=== PATIENT | male | born 1945 | race Caucasian/White ===

== ENCOUNTER → 2018-09-27 08:19 | Outpatient (CLI) | payer MEDICARE, OTHER | END | disposition home or self-care (01) | LOC: D.HCCARDIO 08:19 | PROVIDERS: ATTEND Internal Medicine Cardiovascular Disease | DX: I25.10 Atherosclerotic heart disease of native coronary artery without angina pectoris (principal) ==

== ENCOUNTER 2018-10-10 06:12 | Outpatient (CLI) | payer MEDICARE, OTHER ==
[~2018-10-10] VITALS: Ht 182.9 cm; Wt 108.6 kg
--- NOTE | ~2018-10-10 | HEMODYNAMI ---
PATIENT:PHILIPPE ABREU MEDICAL RECORD: [id number] : 47 LOCATION:[facility] ADMISSION DATE: 10/10/18 Generatedon:10/10/20188:36 Patient name: PHILIPPE ABREU Patient #: [id number] SSN: : 1945 Date of study: 10/10/2018 Page: Of Hemodynamic Procedure Report Patient Data Patient Demographics Procedure consent was obtained First Name: PHILIPPE Gender: Male Last Name: BRADY : 1945 Patient #: [id number] Age: 73 year(s) Race: Unknown Additional ID: [id number] Contact details Address: [address] [place] [address] State: [place] City: [facility] Zip code: [address] Admission Admission Data Admission Date: 10/10/2018 Admission Time: 6:12 Admit Source: Other Height (in.): 71.65 BSA: 1.84 (m2) Height (cm.): 182 BMI: 19.62 (kg/m2) Weight (lbs.): 143.3 Weight (kg.): 65 Lab Results Lab Result Date: 10/10/2018 Lab Result Time: 0:00 Biochemistry Name Units Result Min Max BUN mg/dl 14 --(--*-)-- 7 18 Creatinine mg/dl 1.2 --(---*)-- 0.6 1.3 CBC Name Units Result Min Max Hemoglobin g/dl 15.1 --(-*--)-- 13.5 17.5 Procedure Procedure Types Cath Procedure Diagnostic Procedure LHC LHC w/Coronaries Procedure Description Procedure Date Procedure Date: 10/10/2018 Procedure Start Time: 8:15 Procedure End Time: 8:35 Procedure Staff Name Function Pollo Gutiérrez MD Performing Physician Sandra Richmond RT Scrub Yordy Longo RN Nurse Jaron Delarosa RT Monitor Procedure Data Cath Procedure Fluoroscopy Diagnostic fluoroscopy Total fluoroscopy Time: 5.9 time: 5.9 min min Diagnostic fluoroscopy Total fluoroscopy dose: dose: 1282 mGy 1282 mGy Contrast Material Contrast Material Type Amount (ml) Isovue 300 76 Entry Location Entry Primary Successful Side Size Upsize Upsize Entry Closure Perez ccessful Closure Location (Fr) 1 (Fr) 2 (Fr) Remarks Device Remarks Radial Right 6 Fr Mechanical artery Short Compression Estimated blood loss: 10 ml Diagnostic catheters Device Type Used For End Catheter Placement DIAGNOSTIC Khari 110cm Procedure 5Fr catheter ([id number]) DIAGNOSTIC [place] 110cm 5 Procedure Fr catheter ([id number]) Procedure Medications Medication Administration Route Dosage Oxygen 8 l/min Lidocaine 2% added to field 20 Heparin Flush Bag added to field 2 bags (1000units/500ml NS) 0.9% NaCl I.V. 100 ml/hr Radial Cocktail I.A. 1 syringe (Verapamil 2mg/Nitro 400mcg/Heparin 1500units) Versed I.V. 1 mg Fentanyl I.V. 50 mcg Versed I.V. 1 mg Fentanyl I.V. 50 mcg Versed I.V. 1 mg Versed I.V. 1 mg Hemodynamics Rest BSA: 1.84 (m2) HGB: 15.1 (g/dl) O2 Consumption: Estimated: 215.67 (ml/min) O2 Co nsumption indexed: Estimated:117.21 (ml/min/m) Heart Rate: 75 (bpm) Pressure Samples Time Site Value (mmHg) Purpose Heart Use Rate(bpm) 8:17 LV 164/-18,11 Snapshot 76 8:27 LV 150/-15,7 Snapshot 82 8:29 AO 113/64(73) Snapshot 80 Gradients Valve Time Site Site Mean SEP/DFP Peak To Heart Use 1 2 (mmHg) (sec/min) Peak Rate (mmHg) (bpm) Aortic 8:18 LV AO 66 Snapshots Pre Cath Intra NCS Post Cath Vital Signs Time Heart Resp SPO2 etCO2 NIBP (mmHg) Rhythm Pain Sedation Rate (ipm) (%) (mmHg) Status Level (bpm) 8:05:52 76 14 100 0 142/93(113) NSR 0 (11) 10(A) , No pain 8:10:04 77 13 98 0 152/98(120) NSR 0 (11) 10(A) , No pain 8:14:16 80 13 96 0 151/101(118) NSR 0 (11) 10(A) , No pain 8:18:30 90 13 95 0 122/69(81) NSR 0 (11) 9(A) , No pain 8:23:25 81 15 96 0 143/95(119) NSR 0 (11) 9(A) , No pain 8:27:43 82 15 99 0 144/76(111) NSR 0 (11) 9(A) , No pain 8:32:01 79 15 97 0 133/80(99) NSR 0 (11) 10(A) , No pain Medications Time Medication Route Dose Verified Delivered Reason Notes E ffectiveness by by 8:07:30 Oxygen simple 8 l/min Pollo Buffie used for mask Brock Longo RN procedure 8:07:46 Lidocaine 2% added 20ml Pollo Pollo for local to vial Brock Gutiérrez MD anesthetic field 8:07:51 Heparin Flush added 2 bags Pollo Pollo used for Bag to Brock Gutiérrez MD procedure (1000units/500ml field NS) 8:08:00 0.9% NaCl I.V. 100 Pollo Buffie Per ml/hr Brock Longo RN physician 8:12:11 Versed I.V. 1 mg Pollo Buffie for sedation Brock Longo RN 8:12:18 Fentanyl I.V. 50 mcg Pollo Buffie for sedation Brock Longo RN 8:16:04 Radial Cocktail I.A. 1 Pollo Pollo for (Verapamil syringe Brock Gutiérrez MD vasodilation 2mg/Nitro 400mcg/Heparin 1500units) 8:16:45 Versed I.V. 1 mg Pollo Buffie for sedation Brock Longo RN 8:16:48 Fentanyl I.V. 50 mcg Pollo Buffie for sedation Brock Longo RN 8:21:24 Versed I.V. 1 mg Pollo Buffie for sedation Brock Longo RN 8:26:56 Versed I.V. 1 mg Pollo Buffie for sedation Brock Longo RN Procedure Log Time Note 7:26:34 Diagnostic Cath Status : Elective 7:26:53 Yordy Longo RN sent for patient. Start room use. 7:26:54 Time tracking: Regular hours (M-F 7:00 - 5:00) 7:27:22 Plan of Care:Hemodynamics will remain stable., Cardiac rhythm will remain stable., Comfort level will be maintained., Respiratory function will remain adequate., Patient/ family verbilizes understanding of procedure., Procedure tolerated without complication., Recovers from procedure without complications.. 7:46:45 Admit Source: Other 7:46:50 Patient Weight : 143.3 lbs 7:46:54 Patient Height : 71.65 inches 7:54:08 Patient received from Pre/Post Procedure Room to [facility] 2 Alert and oriented. Tansferred to table in Supine position. 7:54:10 Warm blankets applied, and stefani hugger turned on for patient comfort. 7:54:10 Correct patient and procedure confirmed by team. 7:54:12 Signed procedure consent form obtained from patient. 7:54:13 ECG and BP/O2 sat monitors applied to patient. 8:04:50 Vital chart was started 8:06:35 Baseline sample Acquired. 8:06:39 Rhythm: sinus rhythm 8:06:42 Full Disclosure recording started 8:07:04 H&P Date Dictated: 09/18/2018 Within 30 days and on chart., H&P Addendum completed by physician on day of procedure. (MUST COMPLETE FOR ALL OUTPATIENTS). 8:07:06 Pre-procedure instructions explained to patient. 8:07:06 Pre-op teaching completed and patient verbalized understanding. 8:07:09 Family in patients room. 8:07:21 Patient NPO since Midnight. 8:07:30 Oxygen 8 l/min simple mask was administered by Yordy Longo RN; used for procedure; 8:07:46 Lidocaine 2% 20ml vial added to field was administered by Pollo Gutiérrez MD; for local anesthetic; 8:07:51 Heparin Flush Bag (1000units/500ml NS) 2 bags added to field was administered by Pollo Gutiérrez MD; used for procedure; 8:08:00 0.9% NaCl 100 ml/hr I.V. was administered by Yordy Longo RN; Per physician; 8:08:56 ALLERGY: DUST, CEADER WOOD , MOLD 8:09:07 Is the patient allergic to Iodine/contrast media? No. 8:09:10 Is patient on blood thinner?No 8:09:23 Patient diabetic? No. 8:09:27 ----Pre-sedation anethsthesia assessment.---- 8:09:30 Previous problem with sedation/anesthesia? No ? 8:09:32 Snore? Yes 8:09:33 Sleep apnea? Yes 8:09:35 Deviated septum? No 8:09:36 Opens mouth fully? Yes 8:09:37 Sticks out tongue? Yes 8:09:39 Airway obstruction? No ? 8:09:48 Pre procedure: right dorsailis pedis pulse 2+ Normal; easily identifiable; not easily obliterated 8:09:56 Modified Nicholas's test Ulnar < 7 seconds 8:10:02 Patient pain scale 0/10 ?. 8:10:09 IV patent on arrival in left hand with 0.9% NaCl at [facility]. 8:10:47 Lab Result : BUN 14 mg/dl 8::47 Lab Result : Creatinine 1.2 mg/dl 8::47 Lab Result : Hemoglobin 15.1 g/dl 8:10:55 Right Radial & Right Groin area was prepped with chlora-prep and draped in sterile fashion 8:10:56 Alarms reviewed by R. N. 8:10:57 Sharps counted by scrub and verified by R.N. 8:11:02 Physician arrived 8:11:03 --------ALL STOP TIME OUT------ 8:11:04 Final Timeout: patient, procedure, and site verified with staff and physician. All members of the team are in agreement. 8:11:06 Right Radial & Right Groin site verified by team. 8:11:10 Fire Safety Assessment: A--An alcohol-based skin anteseptic being used preoperatively., C--Open oxygen or nitrous oxide is being used., D--An ESU, laser, or fiber-optic light is being used. 8:11:15 Physical assessment completed. ASA score P 2 - A patient with mild systemic disease as per Pollo Gutiérrez MD. 8:11:35 2) 60-89 Mildly reduced kidney function, and other findings (as for stage 1) point to kidney disease. 8:12:11 Versed 1 mg I.V. was administered by Yordy Longo RN; for sedation; 8:12:18 Fentanyl 50 mcg I.V. was administered by Yordy Longo RN; for sedation; 8:12:24 Maximum allowable contrast does (3.7 X eGFR X 0.75)175 ml. 8:12:29 Sedation plan: IV Moderate Sedation Medication:Versed, Fentanyl 8:14:33 Use device set Radial Dx or PCI 8:14:35 ACIST Syringe (68725) opened to sterile field. 8:14:36 Medline Cath Pack ([id number]) opened to sterile field. 8:14:38 Bag Decanter (2002) opened to sterile field. 8:14:38 ACIST Hand Control (76756) opened to sterile field. 8:14:39 ACIST Manifold (24245) opened to sterile field. 8:14:40 Tegaderm 4 x 4 (1626W) opened to sterile field. 8:14:40 MBrace Wrist Support ([id number]) opened to sterile field. 8:14:41 NEEDLE Cook 21G 4cm Radial (S28955) opened to sterile field. 8:14:48 EMERALD Guide Wire (502-081) opened to sterile field. 8:15:02 SHEATH 6FR RAIN (2458597) opened to sterile field. 8:15:10 Procedure started. 8:15:16 Local anesthetic to right radial artery with Lidocaine 2% by Pollo Gutiérrez MD.INITIAL ACCESS ONLY 8:15:30 A 6 Fr Short sheath was inserted into the Right Radial artery 8:15:49 A DIAGNOSTIC [employer] 110cm 5Fr catheter (623052) was advanced over the wire and used for Procedure. 8:16:04 Radial Cocktail (Verapamil 2mg/Nitro 400mcg/Heparin 1500units) 1 syringe I.A. was administered by Pollo Gutiérrez MD; for vasodilation; 8:16:31 Zero performed for pressure channel P1 8:16:45 Versed 1 mg I.V. was administered by Yordy Longo RN; for sedation; 8:16:48 Fentanyl 50 mcg I.V. was administered by Yordy Longo RN; for sedation; 8:17:49 LV hemodynamics recorded. 8:17:51 LV gram done using OROZCO 8:18:07 EF : 50 % 8:18:57 RCA angiography performed. 8:21:24 Versed 1 mg I.V. was administered by Yordy Longo RN; for sedation; 8:21:24 Catheter removed. 8:21:37 A DIAGNOSTIC [place] 110cm 5 Fr catheter (822214) was advanced over the wire and used for Procedure. 8:21:55 LCA angiography performed. 8:26:56 Versed 1 mg I.V. was administered by Yordy Longo RN; for sedation; 8:30:09 AROUND 40MM AO GRADIANT 8:30:36 Catheter removed. 8:30:42 TR BAND Large ([id number]) opened to sterile field. 8:30:57 Sheath removed intact; hemostasis achieved with Mechanical Compression to the Right Radial artery. 8:31:02 Procedure ended.(Physican Out) 8:31:15 Fluoroscopy time 05.90 minutes. 8:31:20 Fluoroscopy dose: 1282 mGy 8:31:20 Flurop Dose total: 1282 8:31:28 Contrast amount:Isovue 300 76ml. 8:31:40 Sharps counted by scrub and verified by R.N. 8:32:38 TR band inflated with 11cc of air. 8:32:43 Insertion/operative site no bleeding no hematoma. 8:32:56 Post right radial artery:stable 8:33:06 Post Procedure Pulses reassessed and unchanged 8:33:10 Post-procedure physical assessment completed. ASA score P 2 - A patient with mild systemic disease as per Pollo Gutiérrez MD. 8:33:16 Post procedure rhythm: sinus rhythm 8:33:21 Estimated blood loss: 10 ml 8:33:28 Post procedure instruction explained to patient.Patient verbalizes understanding. 8:33:29 Patient needs reinforcement of post procedure teaching. 8:33:42 Procedure and supply charges have been captured, reviewed, submitted and are correct. 8:35:13 Vital chart was stopped 8:35:14 See physician's report for complete and final results. 8:35:20 Report given to Pre/Post Procedure Room. 8:35:26 Patient transfered to Pre/Post Procedure Room with Stretcher. 8:35:28 Procedure ended. 8:35:28 Full Disclosure recording stopped 8:35:41 End room use (Document Last) Device Usage Item Name Manufacture Quantity Catalog Hospital Part Current Minima l Lot# / Number Charge Number Stock Stock Serial# Code DONAVAN Emmanuelist 1 25770 344134 [id number] [id number] 20 Syringe Intervention Insights (49949) Systems Inc Medline Medline 1 [id number] 016529 59694 405989 5 Cath Pack ([id number]) Bag Microtek 1 298861 01348 328063 5 Decanter Medical Inc. () ACIST Hand Acist 1 40858 801109 374372 838558 5 Control Medical (19230) Systems Inc ACIST Acist 1 75791 763226 542532 550639 5 Manifold Medical (99419) Systems Inc Tegaderm 4 3M 1 1626W 306814 207142 346486 5 x 4 (1626W) MBrace Advanced 1 140-0250-00 745224 94657 262066 5 Wrist Vascular Support Dynamics ([id number]) NEEDLE Cook Cook Medical 1 S20818 786963 171442 213662 5 21G 4cm Radial (M53338) EMERALD Cardinal 1 502-704 766176 812808 399565 5 Guide Wire Health (598-308) SHEATH 6FR Cardinal 1 2956119 771690 4216656 444589 5 [facility] (3126256) DIAGNOSTIC Terumo 1 40-5023 416463 359770 488202 5 Khari 110cm 5Fr catheter (040231) DIAGNOSTIC Terumo 1 40-5013 742015 220664 725659 5 [place] 110cm 5 Fr catheter (992726) TR BAND Terumo 1 [id number] 672290 382447 701028 40 Large ([id number]) Signature Audit Dudley Stage Time Signature Unsigned Intra-Procedure 10/10/2018 Jaron Delarosa 8:36:13 AM RT(R) (CV) Signatures Monitor : Jaron Delarosa RT Signature : Date : Time : [facility] [address] [place] [address]
[2018-10-10] MEDS ORDERED: FLOMAX0.4 MG PO (06:32)
[2018-10-10] MEDS ORDERED: OMEPRAZOLE20 M1 PO (06:32)
[2018-10-10] MEDS ORDERED: LEXAPRO20 MG PO (06:32)
[2018-10-10] MEDS ORDERED: LIPITOR20 MG PO (06:33)
[2018-10-10] MEDS ORDERED: NORVASC5 MG PO (06:33)
[2018-10-10 06:48] VITALS: BP 137/80; Ht 182.9 cm; Wt 108.6 kg
[2018-10-10 06:51] LABS: BASOPHILS 0.6 % (0-2); EOSINOPHILS 5.2 % (0-7); HEMATOCRIT 42.3 % (42.0-54.0); HEMOGLOBIN 15.1 g/dL (13.5-17.5); IMMATURE GRANULOCYTES 0.3 % (0-5); MCH 32.3 pg (26.0-34.0); MCHC 35.7 g/dL (31.0-37.0); MCV 90.6 fL (80.0-100.0); MEAN PLATELET VOLUME 10.6 fL (7.4-10.4); MONOCYTES 10.5 % (2-11); NEUTROPHILS 60.4 % (40-80); PLATELET COUNT 145 10x3/uL (130-400); RBC 4.67 10x6/uL (4.20-6.10); RDW 13.1 % (11.5-14.5); WBC 6.4 10x3/uL (4.8-10.8)
[2018-10-10 07:12] LABS: ANION GAP 14.1 mmol/L (8-16); CALCIUM 8.8 mg/dL (8.5-10.1); CARBON DIOXIDE 25.9 mmol/L (21.0-32.0); CREATININE - SERUM 1.2 mg/dL (0.6-1.3)
--- NOTE | 2018-10-10 08:45 | NUR ---
PT RECEIVED VIA STRETCHER FROM [employer] FOR [employer]ERY. PT SLEEPING BUT VERBALLY AROUSABLE. TR BAND AND IMMOBILIZER TO R WRIST, DRESSING CDI NO BLEEDING OR SWELLING NOTED. ARM PINK AND WARM, CAP REFILL BRISK. HR NSR RATE 76, BP 130/70, O2 PLACED AT 3L/MASK. O2 SAT 93. IV INFUSING VIA ORDERS. DR LOGAN IN ROOM SPEAKING WITH REGARDING PROCEDURE RESULTS AND PLAN OF CARE. CALL LIGHT IN REACH.
--- NOTE | 2018-10-10 09:00 | NUR ---
PT SLEEPING COMFORTABLY, TR BAND AND IMMOBILIZER IN PLACE, NO BLEEDING OR HEMATOMA NOTED. AT BEDSIDE, CALL LIGHT IN REACH. VSS.
--- NOTE | 2018-10-10 09:33 | NUR ---
PT C/O L SHOULDER PAIN, STATES HE THINKS IT IF FROM LIFTING WEIGHTS LAST NIGHT. REPOSITIONED FOR COMFORT AND WARM BLANKET PLACED TO SHOULDER. TR BAND IN PLACE, DRESSING REMAINS CDI NO BLEEDING OR SWELLING NOTED. CALL LIGHT IN REACH, AT BEDSIDE. VSS
--- NOTE | 2018-10-10 10:04 | NUR ---
3 CC AIR REMOVED FROM TR BAND W/O BLEEDING OR SWELLING NOTED. O2 REDUCED TO 2L/MASK. COFFE SERVED PER REQUEST, PT STILL PRETTY DROWSY. AT BEDSIDE. STATES SHOULDER PAIN IS SOME BETTER. DENIES OTHER NEEDS AT THIS TIME.
--- NOTE | 2018-10-10 10:30 | NUR ---
PT STILL VERY DROWSY, 2 ADD'L CC AIR REMOVED FROM TR BAND, NO BLEEDING OR HEAMTOMA NOTED. ARM AND HAND REMAIN WARM AND PINK, CAP REFILL BRISK. SANDWICH TRAY SERVED. O2 REMOVED. DENIES OTHER NEEDS AT THIS TIME. NO C/O PAIN OR DISCOMFORT. REMAINS AT BEDSIDE, CALL LIGHT IN REACH
--- NOTE | 2018-10-10 10:50 | NUR ---
IV REMOVED W CATH INTACT, MONITORS REMOVED. PT UP TO DRESS, IN ROOM TO ASSIST.
== END 2018-10-10 11:10 | disposition home or self-care (01) ==
LOC: D.CATH 06:12
PROVIDERS: ATTEND Internal Medicine Cardiovascular Disease
DX: I25.119 Atherosclerotic heart disease of native coronary artery with unspecified angina pectoris (principal); Z01.812 Encounter for preprocedural laboratory examination

== ENCOUNTER 2018-10-30 11:12 | Outpatient (CLI) | payer MEDICARE, OTHER ==
[~2018-10-30] VITALS: Ht 182.9 cm; Wt 109.1 kg
--- NOTE | ~2018-10-30 | HEMODYNAMI ---
PATIENT:PHILIPPE ABREU MEDICAL RECORD: [id number] : 47 LOCATION:[facility] ADMISSION DATE: 10/30/18 Generatedon:10/30/201813:48 Patient name: PHILIPPE ABREU Patient #: [id number] SSN: [id number] : 1945 Date of study: 10/30/2018 Page: Of Hemodynamic Procedure Report Patient Data Patient Demographics Procedure consent was obtained First Name: PHILIPPE Gender: Male Last Name: BRADY : 1945 Patient #: [id number] Age: 73 year(s) Race: SSN: [id number] Additional ID: [id number] Contact details Address: [address] [place] [address] State: [place] City: [facility] Zip code: [address] Past Medical History Performed procedures and imaging results Date Procedure Procedure Results Comments Echocardiography History of disease Date Diagnosis Comments CAD Allergies Allergen Reaction Date Comments Reported Other allergy 10/30/2018 [place], HOUSE DUST, MOLD Admission Admission Data Admission Date: 10/30/2018 Admission Time: 11:12 Arrival Date: 10/30/2018 Arrival Time: 0:00 Admit Source: Other Insurance Payor: Medicare [facility] #: [id number] Height (in.): 72 BSA: 2.3 (m2) Height (cm.): 182.88 BMI: 32.59 (kg/m2) Weight (lbs.): 240.31 Weight (kg.): 109 Medications upon Admission Medications Dosage Times Administered Last Remarks per Delivery Day Date and Time Aspirin 81 mg 1 (any) Statin (any) Lab Results Lab Result Date: 10/30/2018 Lab Result Time: 0:00 Biochemistry Name Units Result Min Max BUN mg/dl 17 --(---*)-- 7 18 Creatinine mg/dl 1.2 --(---*)-- 0.6 1.3 eGFR ml/min 63 *-(----)-- 90 120 NONAFRICAN CBC Name Units Result Min Max Hematocrit % 42 --(*---)-- 42 54 Hemoglobin g/dl 15.2 --(-*--)-- 13.5 17.5 Procedure Procedure Types Cath Procedure Diagnostic Procedure Sedation Charges Moderate Sedation up to 15 minutes PCI Procedure Coronary Stent Coronary Stent Initial Procedure Description Procedure Date Procedure Date: 10/30/2018 Procedure Start Time: 13:21 Procedure End Time: 13:42 Procedure Staff Name Function Pollo Gutiérrez MD Performing Physician Yordy Longo RN Space Operations Officer Buzz Goodwin RN Nurse Janell Lennon RT Monitor Griselda Daniel RT Scrub Indication CAD Additional PCI Information PCI indication: Staged PCI Procedure Data Cath Procedure Fluoroscopy Diagnostic fluoroscopy Total fluoroscopy Time: 4.1 time: 4.1 min min Diagnostic fluoroscopy Total fluoroscopy dose: 673 dose: 673 mGy mGy Contrast Material Contrast Material Type Amount (ml) Isovue 300 80 Entry Location Entry Primary Successful Side Size Upsize Upsize Entry Closure Succes sful Closure Location (Fr) 1 (Fr) 2 (Fr) Remarks Device Remarks Radial Right 6 Fr artery Short Estimated blood loss: 10 ml Procedure Complications No complications Procedure Medications Medication Administration Route Dosage 0.9% NaCl I.V. 100 ml/hr Oxygen etCO2 Nasal cannula 2 l/min Heparin Flush Bag added to field 2 bags (1000units/500ml NS) Lidocaine 2% added to field 20 Radial Cocktail added to field 1 syringe (Verapamil 2mg/Nitro 400mcg/Heparin 1500units) Versed I.V. 2 mg Fentanyl I.V. 100 mcg Radial Cocktail I.A. 1 syringe (Verapamil 2mg/Nitro 400mcg/Heparin 1500units) Versed I.V. 1 mg Fentanyl I.V. 50 mcg Heparin Bolus I.V. 07915 units Nitroglycerin IC/IA I.C. 100 mcg Plavix P.O. 600 mg Hemodynamics Rest BSA: 2.3 (m2) HGB: 15.2 (g/dl) O2 Consumption: Estimated: 263.93 (ml/min) O2 Con sumption indexed: Estimated:114.75 (ml/min/m) Heart Rate: 68 (bpm) Snapshots Pre Cath Intra NCS Post Cath Vital Signs Time Heart Resp SPO2 etCO2 NIBP (mmHg) Rhythm Pain Sedation Rate (ipm) (%) (mmHg) Status Level (bpm) 13:01:48 67 19 97 37.6 145/90(117) NSR 0 (11) 10(A) , No pain 13:06:06 70 14 95 24.8 144/83(108) NSR 0 (11) 10(A) , No pain 13:10:26 71 12 93 36 141/94(113) NSR 0 (11) 10(A) , No pain 13:14:40 71 17 95 28.5 142/98(114) NSR 0 (11) 10(A) , No pain 13:19:00 70 16 95 39.8 142/92(105) NSR 0 (11) 10(A) , No pain 13:23:23 71 14 93 43.6 141/82(108) NSR 0 (11) 9(A) , No pain 13:28:52 75 12 93 28.5 130/68(98) NSR 0 (11) 9(A) , No pain 13:33:08 70 13 92 32.3 124/88(110) NSR 0 (11) 9(A) , No pain 13:37:23 74 13 92 36 141/81(115) NSR 0 (11) 9(A) , No pain 13:41:45 73 13 94 39.8 123/75(97) NSR 0 (11) 10(A) , No pain Medications Time Medication Route Dose Verified Delivered Reason Not es Effectiveness by by 13:04:23 0.9% NaCl I.V. 100 Buzz Buzz Per physician ml/hr Buddy Goodwin RN RN 13:04:32 Oxygen etCO2 2 l/min Buzz Buzz for low 02 sats Nasal Lorigan Loryannick cannula RN RN 13:04:45 Heparin Flush added 2 bags Buzz Buzz used for Bag to Lorigan Lorigan procedure (1000units/500ml field SUN RN NS) 13:04:55 Lidocaine 2% added 20ml Buzz Buzz for local to vial Lorigan Lorigan anesthetic field GARSIA RN 13:05:26 Radial Cocktail added 1 Buzz Buzz used for (Verapamil to syringe Lorigan Lorigan procedure 2mg/Nitro field GARSIA RN 400mcg/Heparin 1500units) 13:14:09 Versed I.V. 2 mg Buzz Buzz for sedation Buddy Goodwin RN RN 13:14:19 Fentanyl I.V. 100 mcg Buzz Buzz for sedation Buddy Goodwin RN RN 13:23:36 Radial Cocktail I.A. 1 Buzz Pollo for (Verapamil syringe Buddy Gutiérrez MD vasodilation 2mg/Nitro RN 400mcg/Heparin 1500units) 13:23:47 Versed I.V. 1 mg Buzz Buzz for sedation Buddy Goodwin RN RN 13:23:54 Fentanyl I.V. 50 mcg Buzz Buzz for sedation Buddy Goodwin RN RN 13:26:44 Heparin Bolus I.V. 11,000 Buzz Buzz for units Buddy Goodwin anticoagulation RN RN 13:36:05 Nitroglycerin I.C. 100 mcg Buzz Pollo for IC/IA Buddy Gutiérrez MD vasodilation RN 13:45:58 Plavix P.O. 600 mg Buzz Buzz for Buddy Goodwin antiplatelet RN RN therapy Procedure Log Time Note 12:42:19 Procedure Status Elective Heart Cath (OP). 12:42:24 Yordy Longo RN sent for patient. Start room use. 12:42:25 Time tracking: Regular hours (M-F 7:00 - 5:00) 12:42:29 Plan of Care:Hemodynamics will remain stable., Cardiac rhythm will remain stable., Comfort level will be maintained., Respiratory function will remain adequate., Patient/ family verbilizes understanding of procedure., Procedure tolerated without complication., Recovers from procedure without complications.. 12:42:31 Signed procedure consent form obtained from patient. 12:46:00 Patient allergic to Other allergyCEDARWOOD, HOUSE DUST, MOLD 12:46:29 Arrival Date: 10/30/2018 12:00:00 AM 12:46:59 Admit Source: Other 12:47:03 Insurance Payor : Medicare 12:47:44 Patient Weight : 240.31 lbs 12:48:01 Patient Height : 72 inches 12:51:09 Lab Result : BUN 17 mg/dl 12:51:09 Lab Result : Creatinine 1.2 mg/dl 12:51:09 Lab Result : eGFR NONAFRICAN 63 ml/min 12:51:09 Lab Result : Hemoglobin 15.2 g/dl 12:51:09 Lab Result : Hematocrit 42 % 12:51:17 Diagnostic Cath Status : Elective 12:51:18 PCI Cath Status : Elective 12:51:26 Indication : CAD 12:51:33 PCI Indication : Staged PCI 12:52:02 Patient received from Pre/Post Procedure Room to CCL 1 Alert and oriented. Tansferred to table in Supine position. 12:52:03 Warm blankets applied, and stefani hugger turned on for patient comfort. 12:52:04 Correct patient and procedure confirmed by team. 12:52:04 ECG and BP/O2 sat monitors applied to patient. 13:00:37 Vital chart was started 13:00:39 Baseline sample Acquired. 13:00:42 Rhythm: sinus rhythm 13:00:43 Full Disclosure recording started 13:01:08 H&P Date Dictated: 10/22/2018 Within 30 days and on chart., H&P Addendum completed by physician on day of procedure. (MUST COMPLETE FOR ALL OUTPATIENTS). 13:01:08 Pre-procedure instructions explained to patient. 13:01:09 Pre-op teaching completed and patient verbalized understanding. 13:01:10 Family in patients room. 13:01:11 Patient NPO since Midnight. 13:01:13 Is patient on blood thinner?Yes 13:01:14 Patient diabetic? No. 13:01:18 Previous problem with sedation/anesthesia? No ? 13:01:19 Snore? Yes 13:01:20 Sleep apnea? Yes 13:01:21 Deviated septum? No 13:01:22 Opens mouth fully? Yes 13:01:23 Sticks out tongue? Yes 13:01:26 Airway obstruction? No ? 13:01:28 Dentures? No ? 13:01:30 Modified Nicholas's test Radial < 7 seconds 13:01:32 Patient pain scale 0/10 ?. 13:01:35 IV patent on arrival in left hand with 0.9% NaCl at KVO. 13:01:38 Lab results completed and on chart. 13:01:43 Right Radial & Right Groin area was prepped with chlora-prep and draped in sterile fashion 13:01:44 Alarms reviewed by R. N. 13:01:45 Sharps counted by scrub and verified by R.N. 13:01:49 Use device set CATH PACK 13:01:50 ACIST Syringe (44175) opened to sterile field. 13:01:50 ACIST Hand Control (84528) opened to sterile field. 13:01:51 ACIST Manifold (32959) opened to sterile field. 13:01:51 Medline Cath Pack ([id number]) opened to sterile field. 13:01:51 Bag Decanter (2001S) opened to sterile field. 13:01:52 EMERALD Guide Wire (046-934) opened to sterile field. 13:02:14 INFLATOR Merit Annamariapak (GA1343) opened to sterile field. 13:02:14 BMW 300cm Straight Gilman 2 wire (0164675) opened to sterile field. 13:02:14 TUBING High Pressure Extension Tubing (Gutiérrez) ([id number]) opened to sterile field. 13:02:15 NEEDLE Cook 21G 4cm Radial (X33424) opened to sterile field. 13:02:19 SHEATH 6FR RAIN (8547859) opened to sterile field. 13:04:23 0.9% NaCl 100 ml/hr I.V. was administered by Buzz Goodwin RN; Per physician; 13:04:32 Oxygen 2 l/min etCO2 Nasal cannula was administered by Buzz Goodwin RN; for low 02 sats; 13:04:45 Heparin Flush Bag (1000units/500ml NS) 2 bags added to field was administered by Buzz Goodwin RN; used for procedure; 13:04:55 Lidocaine 2% 20ml vial added to field was administered by Buzz Goodwin RN; for local anesthetic; 13:05:26 Radial Cocktail (Verapamil 2mg/Nitro 400mcg/Heparin 1500units) 1 syringe added to field was administered by Buzz Goodwin RN; used for procedure; 13:12:38 Zero performed for pressure channel P1 13:12:42 Zero performed for pressure channel P1 13:12:50 --------ALL STOP TIME OUT------ 13:12:50 Final Timeout: patient, procedure, and site verified with staff and physician. All members of the team are in agreement. 13:12:52 Right Radial & Right Groin site verified by team. 13:12:55 Fire Safety Assessment: A--An alcohol-based skin anteseptic being used preoperatively., C--Open oxygen or nitrous oxide is being used., D--An ESU, laser, or fiber-optic light is being used. 13:12:59 Physical assessment completed. ASA score P 2 - A patient with mild systemic disease as per Pollo Gutiérrez MD. 13:13:13 2) 60-89 Mildly reduced kidney function, and other findings (as for stage 1) point to kidney disease. 13:13:28 Maximum allowable contrast dose (3.7 X eGFR X 0.75)186 ml. 13:13:31 Sedation plan: IV Moderate Sedation Medication:Versed, Fentanyl 13:13:48 Zero performed for pressure channel P1 13:14:09 Versed 2 mg I.V. was administered by Buzz Goodwin RN; for sedation; 13:14:13 Zero performed for pressure channel P1 13:14:19 Fentanyl 100 mcg I.V. was administered by Buzz Goodwin RN; for sedation; 13:20:40 Procedure started. 13:20:47 GUIDE 6FR XBLAD 3.5 catheter ([id number]) opened to sterile field. 13:20:57 Zero performed for pressure channel P1 13:21:21 Local anesthetic to right radial artery with Lidocaine 2% by Pollo Gutiérrez MD.INITIAL ACCESS ONLY 13:21:24 ACT drawn and resulted at 365 seconds. (normal therapeutic range 180-240 seconds). 13:22:46 A 6 Fr Short sheath was inserted into the Right Radial artery 13:23:09 6 Fr XBLAD 3,5 guide catheter was inserted over the wire 13:23:36 Radial Cocktail (Verapamil 2mg/Nitro 400mcg/Heparin 1500units) 1 syringe I.A. was administered by Pollo Gutiérrez MD; for vasodilation; 13:23:47 Versed 1 mg I.V. was administered by Buzz Goodwin RN; for sedation; 13:23:54 Fentanyl 50 mcg I.V. was administered by Buzz Goodwin RN; for sedation; 13:26:44 Heparin Bolus 11,000 units I.V. was administered by Buzz Goodwin RN; for anticoagulation; 13:29:34 BMW 300 wire advanced. 13:29:41 Wire advanced across lesion. 13:32:40 Place stent Inflation Number: 1 A EVAN OTW 3.0 x 18 stent ([id number]) was prepped and advanced across the Mid LAD 70. The stent was deployed at 14 MISAEL for 0:10 (min:sec) 0. 13:33:06 Stent catheter was removed intact over wire. 13:36:05 Nitroglycerin IC/IA 100 mcg I.C. was administered by Pollo Gutiérrez MD; for vasodilation; 13:37:01 Wire removed. 13:37:01 Guide catheter removed. 13:37:12 TR BAND Standard ([id number]) opened to sterile field. 13:38:01 Procedure ended.(Physican Out) 13:38:18 Fluoroscopy time 04.10 minutes. 13:38:25 Flurop Dose total: 673 13:38:25 Fluoroscopy dose: 673 mGy 13:38:34 Dose Area Product 81841 mGy/cm. 13:38:50 Contrast amount:Isovue 300 80ml. 13:38:52 Maximum allowable dose exceeded? No. 13:38:53 Sharps counted by scrub and verified by R.N. 13:38:55 TR band inflated with 10cc of air. 13:39:22 Post-procedure physical assessment completed. ASA score P 2 - A patient with mild systemic disease as per Pollo Gutiérrez MD. 13:39:27 Post procedure rhythm: sinus rhythm 13:39:30 Estimated blood loss: 10 ml 13:39:32 Post procedure instruction explained to patient.Patient verbalizes understanding. 13:39:32 Patient needs reinforcement of post procedure teaching. 13:40:18 Procedure type changed to Cath procedure, Diagnostic procedure, Sedation Charges, Moderate Sedation up to 15 minutes, PCI procedure, Coronary Stent, Coronary Stent Initial 13:40:43 Procedure and supply charges have been captured, reviewed, submitted and are correct. 13:40:44 Procedure Complication : No complications 13:40:46 Vital chart was stopped 13:40:46 See physician's report for complete and final results. 13:40:52 Report given to Pre/Post Procedure Room. 13:40:55 Patient transfered to Pre/Post Procedure Room with Bed. 13:42:01 Procedure ended. 13:42:01 Full Disclosure recording stopped 13:42:03 End room use (Document Last) 13:45:58 Plavix 600 mg P.O. was administered by Buzz Goodwin RN; for antiplatelet therapy; Intervention Summary Intervention Notes Time ActionType Lesion and Equipment Action# Pressure Duration Attributes Used 13:32:40 Place stent Mid LAD EVAN OTW 3.0 1 14 00:10 x 18 stent ([id number]) Device Usage Item Name Manufacture Quantity Catalog Hospital Part Current Mini mal Lot# / Number Charge Number Stock Stock Serial# Code ACIST Syringe Acist 1 38246 338198 970643 120366 20 (84608) Medical Systems Inc ACIST Hand Acist 1 49995 544498 973830 561183 5 Control Medical (82583) Systems Inc ACIST Acist 1 60166 578062 245997 385810 5 Manifold Medical (37937) Systems Inc Medline Cath Medline 1 [id number] 037227 73631 773215 5 Pack ([id number]) Bag Decanter Microtek 1 2001S 718091 58863 687248 5 (2001S) Medical Inc. EMERALD Guide Cardinal 1 502455 882539 754678 057018 5 Wire Health (502455) INFLATOR Merit 1 IJ9113 816865 586321 247488 15 [facility] Medical BasixCompak (VF3925) BMW 300cm Zambrano 1 1967078 032688 495632 101040 5 Straight Vascular Gilman 2 wire (8322380) TUBING High [facility] 1 [id number] 694622 08120 969937 10 Pressure Medical Extension Tubing (Brock) ([id number]) NEEDLE [facility] Medical 1 Z73554 625635 646463 538331 5 21G 4cm Radial (X36527) SHEATH 6FR Cardinal 1 6297237 379394 6580737 083152 5 [facility] (2363081) GUIDE 6FR Cardinal 1 81630125 994768 567134 415233 10 XBLAD 3.5 Health catheter (55823394) EVAN OTW 3.0 Medtronic 1 [id number] 441749 9023985 531976 5 [id number] x 18 stent ([id number]) TR BAND Terumo 1 [id number] 762709 249307 323741 40 Standard ([id number]) Signature [place] Stage Time Signature Unsigned Intra-Procedure 10/30/2018 Janell Lennon 1:48:08 PM RT(R) Signatures Performing Physician : Signature : Pollo Gutiérrez MD Date : Time : Nurse : Buzz Lorigan Signature : RN Date : Time : Monitor : Janell Lennon Signature : RT Date : Time : [address] [place] [address]
[~2018-10-30 11:12] MED LIST: FLOMAX0.4 MG PO; LEXAPRO20 MG PO; LIPITOR20 MG PO; NORVASC5 MG PO; OMEPRAZOLE20 M1 PO
[2018-10-30 11:44] VITALS: BP 130/75; Ht 182.9 cm; Wt 109.1 kg
[2018-10-30 11:54] LABS: BASOPHILS 0.4 % (0-2); EOSINOPHILS 5.7 % (0-7); HEMOGLOBIN 15.2 g/dL (13.5-17.5); IMMATURE GRANULOCYTES 0.4 % (0-5); LYMPHOCYTES 22.3 % (15-50); MCH 32.8 pg (26.0-34.0); MCHC 36.2 g/dL (31.0-37.0); MCV 90.7 fL (80.0-100.0); MEAN PLATELET VOLUME 10.3 fL (7.4-10.4); MONOCYTES 12.4 % (2-11); NEUTROPHILS 58.8 % (40-80); PLATELET COUNT 137 10x3/uL (130-400); RBC 4.63 10x6/uL (4.20-6.10); RDW 12.9 % (11.5-14.5); WBC 5.4 10x3/uL (4.8-10.8)
[2018-10-30 12:02] LABS: ANION GAP 14.9 mmol/L (8-16); CALCIUM 8.9 mg/dL (8.5-10.1); CARBON DIOXIDE 25.9 mmol/L (21.0-32.0); CREATININE - SERUM 1.2 mg/dL (0.6-1.3)
[2018-10-30 12:04] LABS: POTASSIUM - SERUM 4.8 mmol/L (3.5-5.1)
[2018-10-30] MEDS ORDERED: ASPIRIN325 MG PO (12:13)
--- NOTE | 2018-10-30 13:53 | NUR ---
PT ARRIVED BY STRETCHER. PLACED ON MONITORS. FAMILY AT BEDSIDE. CALL LIGHT WITHIN REACH.
[2018-10-30] MEDS ORDERED: PLAVIX75 MG PO (14:09)
[2018-10-30] MEDS ORDERED: BAYER CHEWABLE81 MG PO (14:09)
--- NOTE | 2018-10-30 14:10 | NUR ---
RIGHT RADIAL TR BAND IN PLACE. NO BLEEDING/HEMATOMA NOTED. VSS AT THIS TIME. PT'S FAMILY AT BEDSIDE. PT GIVEN SOME WATER. DENIES NAUSEA.
--- NOTE | 2018-10-30 14:20 | NUR ---
DR. LOGAN ROUNDED AND SPOKE WITH PT AND PT'S FAMILY. RIGHT WRIST TR BAND IN PLACE. NO BLEEDING/HEMATOMA NOTED.
--- NOTE | 2018-10-30 14:40 | NUR ---
RIGHT RADIAL TR BAND IN PLACE. NO BLEEDING/HEMATOMA NOTED. VSS. FAMILIY AT BEDSIDE. PT TOLERATING SIPS OF WATER. DENIES NAUSEA.
--- NOTE | 2018-10-30 15:10 | NUR ---
PT RESTING COMFORTABLY. VSS. RIGHT RADIAL TR BAND IN PLACE. NO BLEEDING/HEMATOMA NOTED. FAMILY AT BEDSIDE. CALL LIGHT WITHIN REACH.
--- NOTE | 2018-10-30 15:40 | NUR ---
RIGHT RADIAL TR BAND IN PLACE. NO BLEEDING/HEMATOMA NOTED. PT RESTING COMFORTABLY. VSS. NO OTHER NEEDS AT THIS TIME.
--- NOTE | 2018-10-30 16:06 | NUR ---
PT C/O THROBBING AT RIGHT RADIAL TR BAND SITE. CAP REFILL < 3 SECS TO RIGHT HAND FINGERS. WARM TO TOUCH. 2cc OF AIR REMOVED FROM TR BAND. NO BLEEDING/HEMATOMA NOTED. REPOSITIONED ARM FOR COMFORT. VSS AT THIS TIME. WILL CONTINUE TO MONITOR.
--- NOTE | 2018-10-30 16:45 | NUR ---
2cc OF AIR REMOVED FROM TR BAND. NO BLEEDING/HEMATOMA NOTED. PT SITTING UP. SET UP WITH A SANDWICH AND DRINK. DENIES NAUSEA.
--- NOTE | 2018-10-30 17:09 | NUR ---
4cc OF AIR REMOVED FROM TR BAND. NO BLEEDING/HEMATOMA NOTED. VSS. FAMILY AT BEDSIDE.
--- NOTE | 2018-10-30 17:26 | NUR ---
LEFT ARM PIV D/C'D WITH CATH TIP INTACT. PT TOLERATED WELL. 2cc OF AIR REMOVED FROM TR BAND. NO BLEEDING/HEMATOMA NOTED. PT UP AND AMBULATED TO RESTROOM. VOIDED WITHOUT DIFFICULTY. AMBULATED BACK TO ROOM AND INSTRUCTED TO GET DRESSED. AT BEDSIDE TO ASSIST. CALL LIGHT WITHIN REACH.
--- NOTE | 2018-10-30 17:28 | NUR ---
RIGHT RADIAL TR BAND REMOVED. DRESSING APPLIED. NO BLEEDING/HEMATOMA NOTED. RIGHT WRIST BRACE IN PLACE. PT INSTRUCTED TO KEEP ON FOR 2 HOURS AFTER ARRIVAL HOME.
--- NOTE | 2018-10-30 17:30 | NUR ---
DISCHARGE INSTRUCTION DISCUSSED WITH PT AND PT'S FAMILY. THEY VOICED UNDERSTANDING.
--- NOTE | 2018-10-30 17:45 | NUR ---
RIGHT WRIST DRESSING C/D/I. NO S/S OF HEMATOMA NOTED. PT TAKEN OUT TO VEHICLE BY WHEELCHAIR. NO S/S OF DISTRESS NOTED. ALL BELONGINGS AND PAPERWORK IN HAND.
== END 2018-10-30 17:45 | disposition home or self-care (01) ==
LOC: D.CATH 11:12
PROVIDERS: ATTEND Internal Medicine Cardiovascular Disease
DX: I25.119 Atherosclerotic heart disease of native coronary artery with unspecified angina pectoris (principal); Z01.812 Encounter for preprocedural laboratory examination

== ENCOUNTER → 2020-01-20 13:21 | Outpatient (CLI) | payer MEDICARE, OTHER ==
[2018-10-30 11:44] VITALS: BMI 32.6
[~2020-01-20 13:21] MED LIST changes: +ASPIRIN325 MG PO; +BAYER CHEWABLE81 MG PO; +PLAVIX75 MG PO
== END | disposition home or self-care (01) ==
LOC: D.HCCECHO 13:21
PROVIDERS: ATTEND Internal Medicine Cardiovascular Disease
DX: I25.10 Atherosclerotic heart disease of native coronary artery without angina pectoris (principal)